=== PATIENT | male | born 1960 | race Caucasian/White ===

== ENCOUNTER 2018-02-13 21:16 | Inpatient (IN) | payer MEDICARE, OTHER ==
[~2018-02-13] VITALS: Ht 180.3 cm; Wt 88.5 kg
--- NOTE | 2018-02-13 21:24 | NUR ---
PT BIB RA. COMP OF "FOUND ON FLOOR BY CAREGIVER" PT AOX3. NO SOB NOTED. NO ACUTE DISTRESS AT THIS TIME. AWAITING MD CASTANO.
[2018-02-13] MEDS ORDERED: IV NS 0.9% 500 ML BAG IV ONE (22:00)
[2018-02-13 22:06] LABS: BASOPHILS % (AUTO) 0.3 % (0.0-2.0); CALCIUM, SERUM 8.5 mg/dL (8.5-10.1); CREATININE 1.1 mg/dL (0.6-1.3); EOSINOPHILS % (AUTO) 0.1 % (0.0-6.0); HEMATOCRIT 35 % (39-51); HEMOGLOBIN 11.7 g/dL (13.5-17.5); LYMPHOCYTES # (AUTO) 0.3 /CMM (0.8-4.8); LYMPHOCYTES % (AUTO) 5.2 % (20.0-44.0); MEAN CORPUSCULAR HGB CONC 33 g/dl (31.0-36.0); MEAN CORPUSCULAR VOLUME 88 fL (80-96); MONOCYTES # (AUTO) 0.5 /CMM (0.1-1.30); MONOCYTES % (AUTO) 7.8 % (2.0-12.0); NEUTROPHILS % (AUTO) 86.6 % (43.0-81.0); PLATELET COUNT (AUTO) 186 /CMM (150-450); POTASSIUM 3.8 mmol/L (3.5-5.1); RED BLOOD CELL COUNT(AUTO) 4.02 MIL/uL (4.5-6.0); WHITE BLOOD COUNT (AUTO) 5.8 K/uL (4.3-11.0)
--- NOTE | 2018-02-13 22:14 | NUR ---
PT TAKEN TO RADIO
[2018-02-13 22:20] LABS: BILIRUBIN,DIRECT 0.2 mg/dL (0.0-0.2); BILIRUBIN,TOTAL 0.5 mg/dL (0.2-1.0); TOTAL PROTEIN, SERUM 6.5 g/dL (6.4-8.2)
[2018-02-13 22:22] LABS: CREATINE KINASE, TOTAL 618 U/L (39-308)
[2018-02-13] MEDS ORDERED: MORPHINE SULFATE INJ 2 MG/ML DISP.SYRIN IV ONE (22:30)
[2018-02-13] MEDS ORDERED: MORPHINE SULFATE INJ 4 MG/ML DISP.SYRIN ONE (22:46)
[2018-02-13 23:16] LABS: APPEARANCE,URINE CLEAR (CLEAR); BILIRUBIN,URINE 1+ (NEGATIVE); BLOOD, URINE TRACE-INTA Ery/uL (NEGATIVE); COLOR,URINE YELLOW (YELLOW); KETONES,URINE 2+ (NEGATIVE); LEUKOCYTE ESTERASE ,URINE NEGATIVE (NEGATIVE); NITRITE, URINE NEGATIVE (NEGATIVE); PROTEIN,URINE TRACE mg/dl (NEGATIVE); UGLUCOSE NEGATIVE (NEGATIVE); UROBILINOGEN,URINE 0.2 EU/dL (0.2)
[2018-02-13] MEDS ORDERED: HYDROMORPHONE 1 MG/1 ML DISP.SYRIN ONE (23:24)
[2018-02-13] MEDS ORDERED: ASPIRIN 325 MG TABLET ONE (23:24)
[2018-02-13 23:25] LABS: BACTERIA,URINE None seen /HPF (None Seen); RBC,URINE 0-2 /HPF (0-2); SQUAMOUS EPITHELIAL CELL,UR Few /HPF (None Seen); WBC,URINE 0-2 /HPF (0-3)
[2018-02-13] MEDS ORDERED: IV NS 0.9% 1,000 ML BAG IV ONE (23:30)
[2018-02-13] MEDS ORDERED: HYDROMORPHONE 1 MG/1 ML DISP.SYRIN IV ONE (23:30)
[2018-02-13] MEDS ORDERED: ASPIRIN 325 MG TABLET PO ONE (23:30)
--- NOTE | 2018-02-13 23:50 | NUR ---
REPORT GIVEN TO SKYLAR KAPOOR.
--- NOTE | 2018-02-13 23:57 | NUR ---
REAL ESTATE INSTRUCTOR NOTES PATIENT WAS BROUGHT BY ER STAFF, SAFELY TRANSFERRED TO BED, RESPIRATIONS EVEN AND UNLABORED WITH EQUAL RISE AND FALL OF CHEST.ALERT AND ORIENTED X 2-3.
[2018-02-14] VITALS (7 sets, daily range): BP systolic 93–118; BP diastolic 49–67
[2018-02-14] MEDS ORDERED: ONDANSETRON HCL/PF 4 MG/2 ML VIAL IVP PRN
[2018-02-14] MEDS ORDERED: Z GUARD REMEDY 2 OZ OINT TP PRN
[2018-02-14] MEDS ORDERED: ACETAMINOPHEN 325 MG TABLET PO PRN
[2018-02-14] MEDS ORDERED: MORPHINE SULFATE INJ 2 MG/ML DISP.SYRIN IV PRN
[2018-02-14] MEDS ORDERED: HYDROCODONE/APAP 5/325MG 1 EACH TABLET PO PRN
[2018-02-14] MEDS ORDERED: MAGNESIUM HYDROXIDE 30 ML UDC PO PRN
[2018-02-14] MEDS ORDERED: HYDROCODONE/APAP 10/325MG 1 EA TABLET PO PRN
[2018-02-14] MEDS ORDERED: MAG HYDROX/AL HYDROX/SIMETH 30 ML UDC PO PRN
--- NOTE | 2018-02-14 00:02 | NUR ---
SUPERVISOR ROUGH END NOTES PATIENT WAS TAKEN DOWN FOR CT SCAN ORDERED STAT.
--- NOTE | 2018-02-14 00:05 | NUR ---
PROFESSOR OF FORESTRY NOTES RECEIVED CALL PATIENT WILL GO BACK TO ER AFTER CT AND RESULTS. PATIENT IS NOT ON THE FLOOR AT THIS TIME
[2018-02-14] MEDS ORDERED: HYDROMORPHONE 1 MG/1 ML DISP.SYRIN ONE (00:16)
[2018-02-14] MEDS ORDERED: LORAZEPAM INJ 2 MG/ML VIAL ONE (00:17)
[2018-02-14] MEDS ORDERED: HYDROMORPHONE INJ 0.5 MG/0.5 ML SYRINGE IV PRN (00:30)
[2018-02-14] MEDS ORDERED: LORAZEPAM INJ 2 MG/ML VIAL IV ONE (00:30)
--- NOTE | 2018-02-14 00:39 | NUR ---
Patient is resting comfortably in bed with eyes closed. Easily aroused. VSS
[2018-02-14] MEDS ORDERED: DEXAMETHASONE SOD PHOSPHATE 10 MG/ML VIAL IV STA (01:11)
--- NOTE | 2018-02-14 01:25 | NUR ---
SKYLAR KAPOOR UPDATED ON PT CONDITION.
--- NOTE | 2018-02-14 01:25 | NUR ---
OCCASIONAL BABYSITTER NOTES RECEIVED CALL FROM BETY IN ER WITH PATIENT UPDATE.
[2018-02-14] MEDS ORDERED: IV NS 0.9% 1,000 ML BAG IV ONE (01:30)
[2018-02-14] MEDS ORDERED: DEXAMETHASONE SOD PHOSPHATE 10 MG/ML VIAL ONE (01:35)
--- NOTE | 2018-02-14 01:50 | NUR ---
BINDERY LEADPERSON ADMITTING OPENING NOTES RECEIVED PATIENT FROM ER, AWAKE ALERT AND ORIENTED , RESPIRATIONS EVEN AND UNLABORED WITH EQUAL RISE AND FALL OF CHEST, DENIES ANY PAIN OR DISCOMFORT AT THIS TIME, IV SITE TO LEFT AC #18 G INTACT AND PATENT, NO REDNESS, NO INFILTRATION PRESENT, NS CURRENTLY RUNNING WIDE OPEN FROM ER, BODY ASSESSMENT DONE, PICTURES TAKEN, NO BELONGINGS WITH PATIENT, PERINEAL CARE PROVIDED PATIENT VOID X 1, ALL NEEDS ATTENDED AT THIS TIME, SAFETY PRECAUTIONS IN PLACE, LOW BED AND LOCKED, BED ALARM IN PLACE, CALL LIGHT KEPT WITHIN REACH,ALL NEEDS ATTENDED AT THIS TIME WILL FOLLOW ORDERS PER MD ORDERS.REMAINS COMFORTABLE AT THIS TIME, PATIENT FELL ASLEEP BUT IS EASILY AROUSABLE. Addendum: 02/14/18 at 0330 by SKYLAR VIRK RN ON REHAB SPECIALIST SR 64
[2018-02-14] MEDS: IV NS 0.9% 1,000 ML IV PRN ×2 (02:32→14:18)
--- NOTE | 2018-02-14 05:02 | NUR ---
FILM LOADER NOTES VAUGHN ALMONTE AWARE OF TROPONIN 0.065 TRENDING DOWN NO NEW ORDERS AT THIS TIME.
[2018-02-14] MEDS ORDERED: EVER10TA PO (05:06)
[2018-02-14] MEDS ORDERED: CLIN150C16 PO (05:06)
[2018-02-14] MEDS ORDERED: NITR0.4T48 SL (05:06)
[2018-02-14] MEDS ORDERED: NITROGLYCERIN 0.4 MG/TAB BOTTLE SL SCH (05:30)
[2018-02-14] MEDS ORDERED: MORPHINE SULFATE INJ 4 MG/ML DISP.SYRIN IV PRN (06:48)
--- NOTE | 2018-02-14 06:53 | NUR ---
TAPE STRINGER CLOSING NOTES PATIENT IN BED SLEEPING BUT EASILY AROUSABLE, RESPIRATIONS EVEN AND UNLABORED WITH EQUAL RISE AND FALL OF CHEST, ON 02 2 L VIA NC FOR COMFORT, NO SOB, NO RESPIRATORY DISTRESS PRESENT, ON LAB MANAGER SR 64, IV SITE TO LEFT AC #18 G INTACT AND PATENT, NO REDNESS, NO INFILTRATION PRESENT, IVF RUNNING ORDERED, PERINEAL CARE PROVIDED, DRESSINGS REMAIN CLEAN AND INTACT , SAFETY PRECAUTIONS IN PLACE, LOW BED AND LOCKED, BED ALARM IN PLACE, ALL NEEDS ATTENDED AT THIS TIME, CALL LIGHT KEPT WITHIN REACH, WILL CONTINUE TO MONITOR AND ENDORSE TO NEXT SHIFT, PATIENT REMAINS COMFORTABLE.
[2018-02-14 07:14] LABS: BASOPHILS % (AUTO) 0.3 % (0.0-2.0); HEMATOCRIT 35 % (39-51); HEMOGLOBIN 11.3 g/dL (13.5-17.5); LYMPHOCYTES # (AUTO) 0.2 /CMM (0.8-4.8); MEAN CORPUSCULAR HGB CONC 32 g/dl (31.0-36.0); MEAN CORPUSCULAR VOLUME 90 fL (80-96); MONOCYTES # (AUTO) 0.1 /CMM (0.1-1.30); MONOCYTES % (AUTO) 1.3 % (2.0-12.0); NEUTROPHILS # (AUTO) 3.6 /CMM (1.8-8.9); NEUTROPHILS % (AUTO) 93.4 % (43.0-81.0); PLATELET COUNT (AUTO) 163 /CMM (150-450); RED BLOOD CELL COUNT(AUTO) 3.89 MIL/uL (4.5-6.0); WHITE BLOOD COUNT (AUTO) 3.9 K/uL (4.3-11.0)
--- NOTE | 2018-02-14 07:24 | NUR ---
MUFFLE WORKER OPENING NOTES PT RECEIVED IN BED AT LOWEST AND LOCKED POSITION WITH SIDE RAILS UP X3, A/O X2, BREATHING EVEN AND UNLABORED ON RA, NO S/S OF PAIN OR DISTRESS CURRENTLY NOTED, IV IS PATENT AND INTACT WITH NS INFUSING, SAFETY PRECAUTIONS IN PLACE, CALL LIGHT WITH REACH, WILL MONITOR ACCORDINGLY
[2018-02-14 07:36] LABS: ALBUMIN 2.6 g/dL (3.4-5.0); BILIRUBIN,TOTAL 0.4 mg/dL (0.2-1.0); CALCIUM, SERUM 7.7 mg/dL (8.5-10.1); CREATININE 0.9 mg/dL (0.6-1.3); MAGNESIUM 2.1 mg/dL (1.8-2.4); PHOSPHORUS 2.2 mg/dL (2.5-4.9); POTASSIUM 3.9 mmol/L (3.5-5.1)
[2018-02-14] MEDS: DEXAMETHASONE SOD PHOSPHATE 4 MG/ML VIAL IV SCH ×3 (07:47→19:55)
[2018-02-14] MEDS: PANTOPRAZOLE 40 MG TABLET.DR PO SCH (07:47)
[2018-02-14 08:24] LABS: THYROID STIMULATING HORMONE 0.513 uIU/mL (0.358-3.74)
--- NOTE | 2018-02-14 12:30 | NUR ---
KENNETH SWANSON PT DPOA AT THIS TIME BROUGHT IN DPOA PAPERWORK [facility] DIRECTIVE, AND HOME MEDS WHICH WERE HANDED TO MED RECON NURSE LANCE FOR RECONCILIATION. LANCE MED RECON NURSE TOOK MEDS DOWN TO PHARMACY
[2018-02-14] MEDS ORDERED: BACL10TA PO (12:53)
[2018-02-14] MEDS ORDERED: OXYC5TAB3 PO (12:53)
[2018-02-14] MEDS ORDERED: CARV6.252 PO (12:53)
[2018-02-14] MEDS ORDERED: OXYC40TA50 PO (12:54)
[2018-02-14] MEDS ORDERED: BACLOFEN (10 MG) 10 MG TABLET PO PRN (18:00)
--- NOTE | 2018-02-14 18:17 | NUR ---
RN CLOSING NOTES PT IN BED AT LOWEST AND LOCKED POSITION WITH SIDE RAILS UP X3, A/O X2, BREATHING EVEN AND UNLABORED ON RA, NO S/S OF PAIN OR DISTRESS CURRENTLY NOTED, SAFETY PRECAUTIONS IN PLACE, CALL LIGHT WITH REACH, ALL NEEDS ATTENDED TO, WILL ENDORSE TO COMMISSIONING ENGINEER RN FOR CONTINUITY OF CARE
--- NOTE | 2018-02-14 19:31 | NUR ---
RN MS OPENING NOTES RECEIVED PATIENT IN BED AWAKE, ALERT AND ORIENTED X2, VERBALLY RESPONSIVE, ABLE TO MAKE NEEDS KNOWN. BREATHING EVEN AND UNLABORED. NO SOB NOTED. ON 2L OXYGEN VIA NC. IV ON LEFT AC#18 INTACT AND PATENT. SKIN DRY AND WARM TO TOUCH. ALL OTHER NEEDS ATTENDED TO. SAFETY MEASURES IN PLACE. CALL LIGHT WITHIN REACH. WILL CONTINUE TO MONITOR.
[2018-02-14] MEDS: oxyCODONE HCL SR 20MG TAB.SR.12H PO SCH (21:30)
[2018-02-14] MEDS ORDERED: IV D5/0.45 NACL 1,000 ML IV ONE (23:30)
--- NOTE | 2018-02-15 | NUR ---
RN MS NOTES RECEIVED NEW ORDER FOR LEVETIRACETAM 500MG/5ML IV. MEDICATION NOT IN OMNICELL. CALLED IN TO EVENT MARKETING MANAGER, ANA. PER ANA, HE WILL CHECK TO SEE IF ITS IN THE STOCK CABINET. AWAITING UPDATE. WILL CONTINUE TO F/U.
[2018-02-15] MEDS ORDERED: LEVETIRACETAM (500MG) 500 MG/5 ML VIAL IV ONE (00:15)
--- NOTE | 2018-02-15 00:18 | NUR ---
RN MS NOTES RECEIVED LEVETIRACETAM 500MG/5ML VIAL FROM COST AND RISK ANALYSIS MANAGER. WILL ADMINISTER ACCORDINGLY.
[2018-02-15] MEDS: LEVETIRACETAM (500MG) 500 MG in IV NS 0.9% 100 ML IV SCH ×3 (00:24→23:10)
[2018-02-15] MEDS: DEXAMETHASONE SOD PHOSPHATE 4 MG/ML VIAL IV SCH ×4 (03:18→19:46)
--- NOTE | 2018-02-15 06:28 | NUR ---
RN MS CLOSING NOTES PATIENT IN BED ASLEEP. EASILY AROUSABLE. NO ACUTE CHANGES THROUGHOUT SHIFT. NO DISTRESS. NO SOB. ON 2L OXYGEN VIA NC. NO COMPLAINTS OF PAIN OR DISCOMFORT. NO FACIAL GRIMACING. IV ON RIGHT FOREARM #22 INTACT AND PATENT - RUNNING D51/2 NS @50ML/HR. SKIN DRY AND WARM TO TOUCH. AFEBRILE. ALL OTHER NEEDS ATTENDED TO. KEPT CLEAN DRY AND COMFORTABLE. SAFETY MEASURES IN PLACE. CALL LIGHT WITHIN REACH. WILL ENDORSE TO ONCOMING NURSE FOR CONTINUITY OF CARE.
--- NOTE | 2018-02-15 07:17 | NUR ---
MS RN OPENING NOTE RECEIVED PATIENT IN BED. ALERT ORIENTED X2-3. ON ROOM AIR, TOLERATING WELL. IN NO APPARENT DISTRESS OR DISCOMFORT AT THIS TIME. RESPIRATIONS EVEN AND UNLABORED. DENIES PAIN AND SOB. PATIENT IS ABLE TO COMMUNICATE NEEDS. IS INCONTINENT WITH USE OF DIAPER. RIGHT FOREARM 22G IVC WITH FLUIDS RUNNING AT 50ML/HR. PATIENTS EXTREMITIES ELEVATED AT THIS TIME. PER ASSOCIATE QUALITY ENGINEER RN PATIENT HAS BEEN HAVING DECREASED BP IN 90S/50'S. PATIENT KEPT CLEAN AND COMFORTABLE. ALL NEEDS ATTENDED, SAFETY MEASURE IN PLACE, BED IN LOW LOCKED POSITION, SIDE RAILS UP X2, CALL LIGHT WITHIN EASY REACH. WILL CONTINUE TO MONITOR.
[2018-02-15 07:49] LABS: CREATINE KINASE, TOTAL 630 U/L (39-308)
[2018-02-15 08:00] VITALS: BP 86/55
[2018-02-15 08:00] LABS: CALCIUM, SERUM 7.4 mg/dL (8.5-10.1); CARBON DIOXIDE 21 mmol/L (21-32); CHLORIDE 112 mmol/L (98-107); CREATININE 0.9 mg/dL (0.6-1.3); GLUCOSE 183 mg/dL (74-106); MAGNESIUM 2.1 mg/dL (1.8-2.4); PHOSPHORUS 2.6 mg/dL (2.5-4.9); POTASSIUM 3.7 mmol/L (3.5-5.1); SODIUM SERUM 144 mmol/L (136-145); UREA NITROGEN, BLOOD 22 mg/dL (7-18)
[2018-02-15 08:09] VITALS: BP 86/55
[2018-02-15] MEDS ORDERED: IV NS 0.9% 500 ML IV ONE (08:30)
--- NOTE | 2018-02-15 08:38 | NUR ---
PATIENT'S BP 86/55. STILL REMAINS IN THE LOW SIDE. REPORTED TO DR. MATTHEWS. ORDER RECEIVED TO ADMINISTER 500CC NS IV BOLUS X1 NOW. HOLD BP MEDS IF SBP<100. DISCONTINUE CURRENT IV FLUIDS D57/2NS. NOTED AND CARRIED OUT. CONTINUE TO MONITOR AT THIS TIME.
[2018-02-15] MEDS: PANTOPRAZOLE 40 MG TABLET.DR PO SCH (08:42)
[2018-02-15] MEDS: oxyCODONE HCL SR 20MG TAB.SR.12H PO SCH ×2 (08:44→21:13)
[2018-02-15] MEDS: CARVEDILOL 6.25 MG TABLET PO SCH ×2 (08:44→17:00)
--- NOTE | 2018-02-15 10:30 | NUR ---
AFTER ADMINISTERING ORDERED BOLUS NS, PATIENT'S BP WAS RECHECKED WITH READING OF 100/67 AND HR OF 82. WILL CONTINUE TO MONITOR AT THIS TIME.
--- NOTE | 2018-02-15 10:48 | NUR ---
WOUND CARE CONSULT: PT PRESENTS WITH SACRAL BLANCHABLE REDNESS, PRESENT ON ADMISSION. SACRUM IS VERY BONY. RECOMMENDATIONS MADE FOR SKIN PROTECTION AND CARE. DISCUSSED WITH NURSING STAFF. PT IS CONTINENT AT THIS TIME AND ABLE TO ASSIST WITH TURNING AND REPOSITIONING IN BED. WILL SEE PRN. SOLER IN AGREEMENT WITH PLAN OF CARE. Addendum: 02/15/18 at 1050 by BRAD FISHER WNDNU Amended: Links added.
[2018-02-15 16:06] VITALS: BP 105/66
--- NOTE | 2018-02-15 17:00 | NUR ---
PATIENT'S BP IS 105/66 AND HR 79. PATIENT REFUSED TO TAKE HIS COREG AT THIS TIME STATING THAT HIS BP IS WNL AND IT WOULD DROP AGAIN IF HE TAKES THE MEDICINE. PATIENT REPORTED THAT HIS BP IS ALWAYS VERY LOW UPON AWAKENING. WILL NOTIFY MD AND CONTINUE TO MONITOR AT THIS TIME.
--- NOTE | 2018-02-15 18:44 | NUR ---
MS RN CLOSING NOTE PATIENT IN BED. ALERT ORIENTED X4. ON ROOM AIR, TOLERATING WELL. IN NO APPARENT DISTRESS OR DISCOMFORT AT THIS TIME. RESPIRATIONS EVEN AND UNLABORED. DENIES PAIN AND SOB. PATIENT IS ABLE TO COMMUNICATE NEEDS. PATIENT USES URINAL FOR ELIMINATION. RIGHT FOREARM 22G IVC SL, PATENT AND INTACT. PATIENT KEPT CLEAN AND COMFORTABLE. ALL NEEDS ATTENDED, ORDERS RENDERED. SAFETY MEASURE IN PLACE, BED IN LOW LOCKED POSITION, SIDE RAILS UP X2, CALL LIGHT WITHIN EASY REACH. WILL ENDORSE TO PM NURSE FOR KOJO.
--- NOTE | 2018-02-15 19:32 | NUR ---
RN MS OPENING NOTES RECEIVED PATIENT IN BED AWAKE, ALERT AND ORIENTED X3, VERBALLY RESPONSIVE, ABLE TO MAKE NEEDS KNOWN. BREATHING EVEN AND UNLABORED. NO SOB NOTED. ON ROOM AIR. DENIES PAIN OR DISCOMFORT AT THE MOMENT. IV ON RIGHT FOREARM G#22 INTACT AND PATENT. SKIN DRY AND WARM TO TOUCH. AFEBRILE. ALL OTHER NEEDS ATTENDED TO. SAFETY MEASURES IN PLACE. CALL LIGHT WITHIN REACH. WILL CONTINUE TO MONITOR.
[2018-02-15 20:00] VITALS: BP 107/56
[2018-02-16] MEDS: DEXAMETHASONE SOD PHOSPHATE 4 MG/ML VIAL IV SCH ×2 (02:12→09:04)
--- NOTE | 2018-02-16 06:37 | NUR ---
RN MS CLOSING NOTES PATIENT IN BED AWAKE. NO ACUTE CHANGES THROUGHOUT SHIFT. KEPT NPO PAST MIDNIGHT FOR MRI THIS MORNING. NO DISTRESS. NO SOB. ON 2L OXYGEN VIA NC, BUT OCCASIONALLY TAKES IT OFF - TOLERATES ROOM AIR. NO COMPLAINTS OF PAIN OR DISCOMFORT. NO FACIAL GRIMACING. IV ON RIGHT FOREARM #22 INTACT AND PATENT. SKIN DRY AND WARM TO TOUCH. AFEBRILE. ALL OTHER NEEDS ATTENDED TO. KEPT CLEAN DRY AND COMFORTABLE. SAFETY MEASURES IN PLACE. CALL LIGHT WITHIN REACH. WILL ENDORSE TO ONCOMING NURSE FOR CONTINUITY OF CARE.
--- NOTE | 2018-02-16 06:42 | NUR ---
RN MS NOTES PER PATIENT, HE WOULD LIKE TO TALK TO MD OR MELTER SUPERVISOR OPEN HEARTH FURNACE PRIOR TO HAVING AN MRI. HE WOULD LIKE TO TALK TO THEM REGARDING "BILLING." CHARGE NURSE MADE AWARE. WILL ENDORSE TO ONCOMING NURSE TO HAVE MD OR CM SEE PATIENT.
[2018-02-16 07:11] LABS: BASOPHILS % (AUTO) 0.1 % (0.0-2.0); HEMATOCRIT 32 % (39-51); HEMOGLOBIN 10.5 g/dL (13.5-17.5); LYMPHOCYTES # (AUTO) 0.2 /CMM (0.8-4.8); LYMPHOCYTES % (AUTO) 3.8 % (20.0-44.0); MEAN CORPUSCULAR HGB CONC 33 g/dl (31.0-36.0); MEAN CORPUSCULAR VOLUME 87 fL (80-96); MONOCYTES # (AUTO) 0.3 /CMM (0.1-1.30); MONOCYTES % (AUTO) 4.2 % (2.0-12.0); NEUTROPHILS % (AUTO) 91.9 % (43.0-81.0); PLATELET COUNT (AUTO) 160 /CMM (150-450); RED BLOOD CELL COUNT(AUTO) 3.65 MIL/uL (4.5-6.0); WHITE BLOOD COUNT (AUTO) 6.5 K/uL (4.3-11.0)
[2018-02-16 07:25] LABS: CREATININE 0.9 mg/dL (0.6-1.3); MAGNESIUM 2.2 mg/dL (1.8-2.4); PHOSPHORUS 1.7 mg/dL (2.5-4.9); POTASSIUM 4.7 mmol/L (3.5-5.1)
[2018-02-16] MEDS: PANTOPRAZOLE 40 MG TABLET.DR PO SCH (07:30)
[2018-02-16 08:00] VITALS: BP 129/71
[2018-02-16 09:11] VITALS: BP 129/71
[2018-02-16] MEDS: CARVEDILOL 6.25 MG TABLET PO SCH (09:11)
[2018-02-16] MEDS: oxyCODONE HCL SR 20MG TAB.SR.12H PO SCH (09:18)
[2018-02-16] MEDS ORDERED: K PHOS NEUTRAL 250 MG TABLET PO ONE ×2 (12:00→13:30)
[2018-02-16] MEDS ORDERED: DEXA4TAB PO (12:06)
[2018-02-16] MEDS ORDERED: LEVE250T2 PO (12:06)
--- NOTE | 2018-02-16 14:57 | NUR ---
Patient discharged on 02/16/18 from Room 323-2 at 1345. Discharge paperwork signed and sent with patient. Orders signed by MD Gutierrez. Skin in tact. Bilateral upper extremities bruises noted. Patient discharged with friend via wheelchair from unit. No s/s of distress noted. Patient AOX4 with no c/o of pain noted. Educated patient to discharge MD instructions and medication list with verbal understanding.
[2018-02-16] MEDS ORDERED: LEVETIRACETAM (250 MG) 250 MG TABLET PO SCH (21:00)
== END 2018-02-16 13:45 | disposition home or self-care (01) | DRG 542 ==
LOC: ER 21:23 → TELE 23:36 → MED 02-14 11:11
PROVIDERS: ADMIT Registered Nurse; ATTEND Internal Medicine
DX: M48.54XA Collapsed vertebra, not elsewhere classified, thoracic region, initial encounter for fracture (principal); G93.6 Cerebral edema; G93.41 Metabolic encephalopathy; I21.A1 Myocardial infarction type 2; S22.42XA Multiple fractures of ribs, left side, initial encounter for closed fracture; C79.31 Secondary malignant neoplasm of brain; C34.90 Malignant neoplasm of unspecified part of unspecified bronchus or lung; C79.51 Secondary malignant neoplasm of bone; E44.1 Mild protein-calorie malnutrition; E86.0 Dehydration; R53.1 Weakness; E88.09 Other disorders of plasma-protein metabolism, not elsewhere classified; Z68.27 Body mass index [BMI] 27.0-27.9, adult; Z66 Do not resuscitate; Z90.2 Acquired absence of lung [part of]; I10 Essential (primary) hypertension; Z91.81 History of falling; Z90.5 Acquired absence of kidney; W18.30XA Fall on same level, unspecified, initial encounter; Y93.9 Activity, unspecified; Y92.009 Unspecified place in unspecified non-institutional (private) residence as the place of occurrence of the external cause
CPT/HCPCS: 36415; 70450-TC; 71045-TC; 72131-TC; 73502; 80048-TC; 80053-TC; 80061-TC; 80076-TC; 81000-TC; 82550-TC; 82553-TC; 83735-TC; 84100-TC; 84443-TC; 84484-TC; 85025-TC; 85730-TC; 87081-TC; A4606; G0378; J1100; J1170; J1953; J2060; J2270; J3490; J7030; J7040; J7050; Z7610

== ENCOUNTER 2018-03-15 15:23 | Inpatient (IN) | payer MEDICARE ==
[~2018-03-15] VITALS: Ht 167.6 cm; Wt 67.6 kg
[~2018-03-15 15:23] MED LIST: BACL10TA PO; CARV6.252 PO; DEXA4TAB PO; EVER10TA PO; LEVE250T2 PO; NITR0.4T48 SL; OXYC40TA50 PO; OXYC5TAB3 PO
--- NOTE | 2018-03-15 15:30 | NUR ---
JEAN 102, ALTERED, BS 51, D10 250ML GIVEN BS 233, CG SAW HIM ON THE FLOOR DON'T KNOW FOR HOW MANY DAYS NOW. TO ER BED 8, CHANGED TO GOWN, HOOKED TO MONITOR, AT BEDSIDE
[2018-03-15 15:56] LABS: CALCIUM, SERUM 7.9 mg/dL (8.5-10.1); CARBON DIOXIDE 18 mmol/L (21-32); CHLORIDE 103 mmol/L (98-107); CREATININE 0.8 mg/dL (0.6-1.3); GLUCOSE 186 mg/dL (74-106); POTASSIUM 3.9 mmol/L (3.5-5.1); SODIUM SERUM 134 mmol/L (136-145); UREA NITROGEN, BLOOD 51 mg/dL (7-18)
[2018-03-15 16:00] LABS: HEMATOCRIT 42 % (39-51); HEMOGLOBIN 13.6 g/dL (13.5-17.5); LYMPHOCYTES # (AUTO) 0.1 /CMM (0.8-4.8); MEAN CORPUSCULAR HGB CONC 32 g/dl (31.0-36.0); MEAN CORPUSCULAR VOLUME 89 fL (80-96); MONOCYTES # (AUTO) 0.3 /CMM (0.1-1.30); MONOCYTES % (AUTO) 6.9 % (2.0-12.0); NEUTROPHILS # (AUTO) 4.4 /CMM (1.8-8.9); NEUTROPHILS % (AUTO) 91.1 % (43.0-81.0); PLATELET COUNT (AUTO) 74 /CMM (150-450); RED BLOOD CELL COUNT(AUTO) 4.76 MIL/uL (4.5-6.0); WHITE BLOOD COUNT (AUTO) 4.9 K/uL (4.3-11.0)
[2018-03-15] MEDS ORDERED: IV NS 0.9% 1,000 ML BAG IV ONE (16:00)
[2018-03-15 16:02] LABS: ACETAMINOPHEN 4 ug/ml (10-30); ALANINE AMINOTRANSFERASE 64 U/L (12-78); ALBUMIN 2.8 g/dL (3.4-5.0); ALCOHOL, BLOOD < 3 mg/dL (0-0); ALKALINE PHOSPHATASE 73 U/L (46-116); ASPARTATE AMINOTRANSFERASE 53 U/L (15-37); BILIRUBIN,DIRECT 0.3 mg/dL (0.0-0.2); BILIRUBIN,TOTAL 0.7 mg/dL (0.2-1.0); TOTAL PROTEIN, SERUM 5.5 g/dL (6.4-8.2)
[2018-03-15 16:38] LABS: BAND % (MANUAL) 3 % (0.0-5.0); LYMPHOCYTES % (MANUAL) 3 % (16-48); MONOCYTES % (MANUAL) 2 % (0-11.0); NEUTROPHILS % (MANUAL) 92 (42-76)
[2018-03-15 16:43] LABS: APPEARANCE,URINE Clear (CLEAR); BILIRUBIN,URINE Negative (NEGATIVE); BLOOD, URINE Negative Ery/uL (NEGATIVE); COLOR,URINE Yellow (YELLOW); KETONES,URINE 15 (NEGATIVE); LEUKOCYTE ESTERASE ,URINE Negative (NEGATIVE); NITRITE, URINE Negative (NEGATIVE); PH,URINE 5.5 (5.0-8.0); PROTEIN,URINE Negative (NEGATIVE); UGLUCOSE Negative (NEGATIVE); UROBILINOGEN,URINE 0.2 EU/dL (0.2)
[2018-03-15 16:47] LABS: SERUM AMMONIA < 10 umol/L (11-32)
[2018-03-15 17:01] LABS: BACTERIA,URINE Few /HPF (None Seen); RBC,URINE 0-2 /HPF (0-2); SQUAMOUS EPITHELIAL CELL,UR Few /HPF (None Seen); WBC,URINE 0-2 /HPF (0-3)
--- NOTE | 2018-03-15 17:26 | NUR ---
REPORT GIVEN TO BERTIN KAPOOR FOR ADMISSION
--- NOTE | 2018-03-15 18:15 | NUR ---
MS RN NOTES ADMITTED 57 YEAR OLD MALE TO UNIT. ARRIVED VIA GURNEY, REPORT RECEIVED FROM TATE KAPOOR. PATIENT AWAKE, ALERT TO SELF AND PLACE BUT NOT TO TIME, DATE, NOR SITUATION. PATIENT REORIENTED NEEDED. PATIENT BREATHING EVEN AND UNLABORED. NO ACUTE DISTRESS. DENIES ANY PAIN OR DISCOMFORT. PATIENT CALM AND RELAXED. [id number], TIMOTHY, AT BEDSIDE (TEL: [phone]). PATIENT ADMITTED UNDER HEATHER ARMSTRONG NP. AWAITING ADMITTING ORDERS. PATIENT AND TIMOTHY ([id number]) ORIENTED TO UNIT, STAFF, ROOM, MEAL TIMES, MENU SYSTEM, PLAN OF CARE. WILL ENDORSE TO INCOMING SHIFT FOR KOJO. BED LOCKED AND IN LOW POSITION. BILATERAL UPPER SIDE RAILS UP AND LOCKED. CALL LIGHT WITHIN EASY REACH
[2018-03-15] MEDS ORDERED: MAGNESIUM HYDROXIDE 30 ML UDC PO PRN (19:00)
[2018-03-15] MEDS ORDERED: ONDANSETRON HCL/PF 4 MG/2 ML VIAL IVP PRN (19:00)
[2018-03-15] MEDS ORDERED: ACETAMINOPHEN 325 MG TABLET PO PRN (19:00)
[2018-03-15] MEDS ORDERED: MAG HYDROX/AL HYDROX/SIMETH 30 ML UDC PO PRN (19:00)
[2018-03-15] MEDS ORDERED: HYDROCODONE/APAP 10/325MG 1 EA TABLET PO PRN (19:00)
[2018-03-15] MEDS ORDERED: HYDROCODONE/APAP 5/325MG 1 EACH TABLET PO PRN (19:00)
--- NOTE | 2018-03-15 19:30 | NUR ---
PIER HAND HELPER NOTES Received this newly admitted patient A/O X2, awake on bed with patent peripheral IV line LEF G#18 with Ns infusing well @ 75ml/hr as ordered. With Adelina, primary caregiver at bedside. Reviewed admission orders, patient on tele - SR with BBB. Initial skin assessment done, photos taken and documented. All needs attended. Kept clean, dry and comfortable. Call light at bedside. Will continue to monitor accordingly.
--- NOTE | 2018-03-15 19:42 | NUR ---
MS RN NOTES ASKED PATIENT REGARDING VACCINATION STATUS BUT PATIENT VERBALIZES HE DOESNT KNOW. OFFERED TO HAVE PATIENT VACCINATED BUT PATIENT REFUSES AND STATES HE DOES NOT WANT ANY VACCINATIONS OR MEDICAL INTERVENTION. SISTER IN LAW, TIMOTHY AT BEDSIDE, ALSO UNSURE OF PATIENT VACCINATION STATUS. WILL CONTINUE TO MONITOR
--- NOTE | 2018-03-15 19:44 | NUR ---
MS RN NOTES TIMOTHY, [id number] AT BEDSIDE, STATING THAT SHE IS NOT THE PRIMARY DECISION MAKER AND THAT THE DECISION MAKER WILL BE COMING IN THE UNIT AROUND 8PM. STATES THAT THEY MIGHT WANT TO CONSIDER CHANGING THE CODE STATUS OF THE PATIENT TO DNR/DNI BUT SHE WANTS TO WAIT FOR THE PRIMARY DECISION MAKER TO ARRIVE IN THE UNIT. HEATHER ARMSTRONG NP. PRESENT AT UNIT AND MADE AWARE. WILL CONTINUE TO MONITOR
[2018-03-15 20:00] VITALS: BP 114/48
[2018-03-15] MEDS ORDERED: BACLOFEN (10 MG) 10 MG TABLET PO PRN (20:00)
[2018-03-15] MEDS ORDERED: HOME MED MISCELLANEOUS XX SCH (20:00)
[2018-03-15] MEDS ORDERED: TEMAZEPAM 7.5 MG CAPSULE PO PRN (20:00)
[2018-03-15] MEDS: LEVETIRACETAM (250 MG) 250 MG TABLET PO SCH (21:08)
[2018-03-15] MEDS ORDERED: DEXAMETHASONE 1 MG TABLET ONE (21:10)
[2018-03-15] MEDS: DEXAMETHASONE 4 MG TABLET PO SCH (21:11)
--- NOTE | 2018-03-15 22:00 | NUR ---
CHIEF ENVIRONMENTAL COMMITMENT OFFICER NOTES Received visitor, EMERY Luna ([phone]). Answered all inquiries with satisfaction. DPOA can not give the decision for now. Explained that patient will be full code while waiting for the decision. Will endorsed to the next nurse about patient's primary contact lens blocker.
[2018-03-15] MEDS: IV NS 0.9% 1,000 ML IV PRN (22:30)
[2018-03-16 00:40] VITALS: BP 92/54
[2018-03-16 04:00] VITALS: BP 99/65
[2018-03-16 06:32] LABS: BASOPHILS % (AUTO) 0.1 % (0.0-2.0); HEMATOCRIT 34 % (39-51); HEMOGLOBIN 11.4 g/dL (13.5-17.5); LYMPHOCYTES # (AUTO) 0.1 /CMM (0.8-4.8); LYMPHOCYTES % (AUTO) 2.3 % (20.0-44.0); MEAN CORPUSCULAR HGB CONC 33 g/dl (31.0-36.0); MEAN CORPUSCULAR VOLUME 88 fL (80-96); MONOCYTES # (AUTO) 0.1 /CMM (0.1-1.30); MONOCYTES % (AUTO) 1.7 % (2.0-12.0); NEUTROPHILS # (AUTO) 3.2 /CMM (1.8-8.9); NEUTROPHILS % (AUTO) 95.9 % (43.0-81.0); PLATELET COUNT (AUTO) 61 /CMM (150-450); RED BLOOD CELL COUNT(AUTO) 3.88 MIL/uL (4.5-6.0); WHITE BLOOD COUNT (AUTO) 3.4 K/uL (4.3-11.0)
[2018-03-16 06:37] LABS: CALCIUM, SERUM 7.3 mg/dL (8.5-10.1); CREATININE 0.7 mg/dL (0.6-1.3); MAGNESIUM 2.1 mg/dL (1.8-2.4); PHOSPHORUS 3.5 mg/dL (2.5-4.9); POTASSIUM 3.4 mmol/L (3.5-5.1)
--- NOTE | 2018-03-16 06:38 | NUR ---
SALES DEVELOPMENT MANAGER CLOSING NOTES Patient asleep on low Merritt's position on bed with patent peripheral IV access LEF G#18 with NS infusing well @ 75 ml/hr as ordered. Afebrile the whole shift. Noted getting off the bed but manageable with reorientation. On tele monitor - SR with BBB. On DVT pump BLE as ordered. All needs attended and met. Remained A/O X2, with circumstantiality noted. Kept clean, dry and comfortable. Due meds given as ordered. Endorsed to the next shift.
[2018-03-16 07:12] LABS: BAND % (MANUAL) 3 % (0.0-5.0); LYMPHOCYTES % (MANUAL) 4 % (16-48); MONOCYTES % (MANUAL) 2 % (0-11.0); NEUTROPHILS % (MANUAL) 91 (42-76)
--- NOTE | 2018-03-16 07:19 | NUR ---
HYDROMETEOROLOGIST OPENING NOTE RECEIVED PATIENT IN BED. ALERT ORIENTED X2, ON ROOM AIR, TOLERATING WELL. IN NO APPARENT DISTRESS OR DISCOMFORT AT THIS TIME. RESPIRATIONS EVEN AND UNLABORED. DENIES PAIN AND SOB. PATIENT ON TELE MONITORING WITH SR WITH BBB. PATIENT IS ABLE TO COMMUNICATE NEEDS. LEFT EJ VEIN 18G IVC WITH FLUIDS RUNNING AT 75ML/HR. PATIENT KEPT CLEAN AND COMFORTABLE. ALL NEEDS ATTENDED, SAFETY MEASURES IN PLACE, BED IN LOW LOCKED POSITION, SIDE RAILS UP X2, CALL LIGHT WITHIN EASY REACH WILL CONTINUE TO MONITOR.
[2018-03-16 08:00] VITALS: BP 93/55
--- NOTE | 2018-03-16 08:28 | NUR ---
CALLED PHARMACY TO OBTAIN DECADRON. SPOKE TO STEPHY, AWAITING MEDICATION DELIVERY.
[2018-03-16] MEDS ORDERED: CARVEDILOL 6.25 MG TABLET PO SCH (09:00)
--- NOTE | 2018-03-16 09:00 | NUR ---
PATIENT WITH BP OF 93/55. HELD SCHEDULED COREG, ELEVATED PATIENT'S EXTREMITIES, PATIENT IS RECEIVING IV FLUIDS AT 75 ML/HR. WILL CONTINUE TO MONITOR BP AT THIS TIME.
[2018-03-16] MEDS: LEVETIRACETAM (250 MG) 250 MG TABLET PO SCH ×2 (09:08→21:28)
--- NOTE | 2018-03-16 09:40 | NUR ---
PATIENT' EXTERNAL JUGULAR IV SITE IS INFILTRATED. PER DR. BAUGH REMOVE THE IV LINE AT THIS TIME, OK FOR PATIENT TO BE WITHOUT IV SITE PER MD. WILL ATTEMPT TO REINSERT IN A DIFFERENT SITE IF NEEDED.
--- NOTE | 2018-03-16 10:00 | NUR ---
PATIENT'S BP IS 95/50, NO SIGNIFICANT IMPROVEMENT. PATIENT IS STABLE, IN NO APPARENT DISTRESS OR DISCOMFORT. REPORTED TO DR. BAUGH, NO NEW ORDERS RECEIVED AT THIS TIME. WILL CONTINUE TO MONITOR.
--- NOTE | 2018-03-16 10:30 | NUR ---
NEW IV SITE ESTABLISHED IN RIGHT HAND 24G, PER EMELIA BOLTON. PATENT AND INTACT. RESUMED FLUIDS AT THIS TIME.
--- NOTE | 2018-03-16 10:58 | NUR ---
WOUND CARE CONSULT: PT PRESENTS WITH STAGE 3 ULCER TO SACRUM, PRESENT ON ADMISSION WELL MULTIPLE DRY ABRASIONS AND BRUISES. RECOMMENDATIONS MADE FOR WOUND CARE AND SKIN PROTECTION. DISCUSSED WITH NURSING STAFF. IN AGREEMENT WITH PLAN OF CARE. Addendum: 03/16/18 at 1059 by BRAD FISHER WNDNU Amended: Links added.
[2018-03-16] MEDS ORDERED: POTASSIUM CHLORIDE 20 MEQ TAB.PRT.SR PO SCH (11:00)
[2018-03-16] MEDS: Z GUARD REMEDY 2 OZ OINT TP SCH ×2 (11:30→12:53)
[2018-03-16] MEDS ORDERED: Z GUARD REMEDY 2 OZ OINT TP PRN (11:30)
[2018-03-16] MEDS ORDERED: HYDROGEL DRESSING 90 GM TUBE TP PRN (11:30)
[2018-03-16] MEDS: HYDROGEL DRESSING 90 GM TUBE TP SCH ×2 (11:30→12:51)
[2018-03-16] MEDS: DEXAMETHASONE 4 MG TABLET PO SCH ×2 (11:45→16:28)
[2018-03-16 16:00] VITALS: BP 98/54
--- NOTE | 2018-03-16 17:29 | NUR ---
Patient is alert, lives locally alone. Has a caregiver Iliana comes daily and provides assistance with adl's. Prior to admission, patient was ambulating with a walker. Has adequate DME: walker, wheelchair, raised toilet seat, shower chair and grab bars. He is currently on service with homehealth, caregiver does not remember name of the agency. Caregiver Iliana - [phone] will provide ride when discharge. Addendum: 03/16/18 at 1729 by SCOT KELLY RN Amended: Links added.
--- NOTE | 2018-03-16 18:09 | NUR ---
MS RN CLOSING NOTE PATIENT IN BED. ALERT ORIENTED X 3, WITH OCCASIONAL CONFUSION. ON ROOM AIR, TOLERATING WELL. IN NO APPARENT DISTRESS OR DISCOMFORT AT THIS TIME. RESPIRATIONS EVEN AND UNLABORED. DENIES PAIN AND SOB. PATIENT IS ABLE TO COMMUNICATE NEEDS. RIGHT HAND 24G IVC WITH FLUIDS RUNNING AT 75ML/HR. BILATERAL LOWER EXTREMITY PITTING EDEMA PRESENT. PATIENT KEPT CLEAN AND COMFORTABLE, DRESSINGS CHANGED. ALL NEEDS ATTENDED, ORDERS RENDERED. SAFETY MEASURES IN PLACE, BED IN LOW LOCKED POSITION, SIDE RAILS UP X2, CALL LIGHT WITHIN EASY REACH. WILL ENDORSE TO PM NURSE FOR KOJO.
--- NOTE | 2018-03-16 19:15 | NUR ---
MS RN NOTE PATIENT IN BED. ALERT ORIENTED X 3. ON ROOM AIR IN NO APPARENT DISTRESS OR DISCOMFORT AT THIS TIME. RESPIRATIONS EVEN AND UNLABORED. DENIES PAIN AND SOB/. PATIENT IS ABLE TO COMMUNICATE NEEDS RIGHT HAND 24G IVC WITH FLUIDS RUNNING AT 75ML/HR. SAFETY MEASURES IN PLACE, BED IN LOW LOCKED POSITION, SIDE RAILS UP X3, CALL LIGHT WITHIN HAND. RN WILL CONTINUE TO MONITOR.
[2018-03-16 20:00] VITALS: BP 105/77
[2018-03-17] MEDS: IV NS 0.9% 1,000 ML IV PRN (05:36)
[2018-03-17 06:57] LABS: CALCIUM, SERUM 7.3 mg/dL (8.5-10.1); CREATININE 0.6 mg/dL (0.6-1.3); POTASSIUM 3.4 mmol/L (3.5-5.1)
--- NOTE | 2018-03-17 07:15 | NUR ---
MS RN OPENING NOTE PATIENT IN BED. ALERT ORIENTED X 3, WITH OCCASIONAL CONFUSION. ON ROOM AIR, TOLERATING WELL. IN NO APPARENT DISTRESS OR DISCOMFORT AT THIS TIME. RESPIRATIONS EVEN AND UNLABORED. DENIES PAIN AND SOB. PATIENT IS ABLE TO COMMUNICATE NEEDS. RIGHT HAND 24G IVC WITH FLUIDS RUNNING AT 75ML/HR. BILATERAL LOWER EXTREMITY PITTING EDEMA PRESENT. PATIENT KEPT CLEAN AND COMFORTABLE, DRESSINGS CLEAN AND INTACT. ALL NEEDS ATTENDED, ORDERS RENDERED. SAFETY MEASURES IN PLACE, BED IN LOW LOCKED POSITION, SIDE RAILS UP X2, CALL LIGHT WITHIN EASY REACH. WILL CONTINUE TO MONITOR.
[2018-03-17 08:00] VITALS: BP 94/49
[2018-03-17] MEDS: DEXAMETHASONE 4 MG TABLET PO SCH (09:05)
[2018-03-17] MEDS: LEVETIRACETAM (250 MG) 250 MG TABLET PO SCH (09:05)
[2018-03-17] MEDS: HYDROGEL DRESSING 90 GM TUBE TP SCH (09:06)
[2018-03-17] MEDS: Z GUARD REMEDY 2 OZ OINT TP SCH (09:07)
[2018-03-17] MEDS ORDERED: POTASSIUM CHLORIDE 20 MEQ TAB.PRT.SR PO SCH (10:30)
--- NOTE | 2018-03-17 14:20 | NUR ---
MS BUNDLE TIER AND LABELER NOTE RECEIVED ORDER FOR DISCHARGE FROM DR. BAUGH. PATIENT IS BEING DISCHARGED HOME WITH PCP AND ONCOLOGY FOLLOW UP, AND HOME HEALTH CARE FOLLOW UP. PER PATIENT AND CAREGIVER, THEY HAVE THEIR PREFERRED HOME HEALTH CARE THAT IS GOING TO VISIT THIS AFTERNOON. PATIENT IS STABLE. VITAL SIGNS STABLE. ALERT ORIENTED X4. ON ROOM AIR, TOLERATING WELL. IN NO APPARENT DISTRESS OR DISCOMFORT AT THIS TIME. RESPIRATIONS EVEN AND UNLABORED. DENIES PAIN AND SOB. DISCHARGE PAPERWORK PREPARED VIA [employer]. PROVIDED EDUCATION TO PATIENT AND CAREGIVER, CM, REGARDING DISCHARGE INSTRUCTIONS AND FOLLOW UP CARE, BOTH VERBALIZED UNDERSTANDING. PATIENT REFUSED FULL SKIN ASSESSMENT AND PHOTOS, STATING, HE DOESN'T WANT TO BE BOTHERED. HOWEVER, AGREED TO CHANGE DRESSINGS PRIOR TO DISCHARGE. PATIENT REFUSED FLU VACCINE. NO BELONGINGS PRESENT AT BEDSIDE, VERIFIED AND NOTED. ALL DISCHARGE PAPERWORK SIGNED, COPIES MADE PLACED IN CHART. PATIENT'S IV SITE REMOVED, TIP INTACT. ID BAND REMOVED. PATIENT LEFT THE UNIT ON A WHEELCHAIR, ACCOMPANIED BY XOCHITL ZAMORA AND CAREGIVER CM AT 1420.
[2018-03-18] MEDS ORDERED: NOREPINEPHRINE 4 MG/4 ML AMPUL IV ONE (22:08)
== END 2018-03-17 14:15 | disposition home health service (06) | DRG 682 ==
LOC: ER 15:25 → MED 17:27 → TELE 20:04 → MED 03-16 08:47
PROVIDERS: ADMIT Nurse Practitioner Acute Care; ATTEND Internal Medicine
DX: N17.0 Acute kidney failure with tubular necrosis (principal); G92 Toxic encephalopathy; E43 Unspecified severe protein-calorie malnutrition; M84.48XA Pathological fracture, other site, initial encounter for fracture; D68.59 Other primary thrombophilia; E16.2 Hypoglycemia, unspecified; G93.9 Disorder of brain, unspecified; R26.81 Unsteadiness on feet; W19.XXXA Unspecified fall, initial encounter; Z91.81 History of falling; Y92.009 Unspecified place in unspecified non-institutional (private) residence as the place of occurrence of the external cause; E86.0 Dehydration; F17.210 Nicotine dependence, cigarettes, uncomplicated; I10 Essential (primary) hypertension; I25.10 Atherosclerotic heart disease of native coronary artery without angina pectoris; Z85.118 Personal history of other malignant neoplasm of bronchus and lung; Z96.642 Presence of left artificial hip joint; Z90.5 Acquired absence of kidney; I25.2 Old myocardial infarction; E88.09 Other disorders of plasma-protein metabolism, not elsewhere classified; M62.50 Muscle wasting and atrophy, not elsewhere classified, unspecified site; Z79.899 Other long term (current) drug therapy; Z68.24 Body mass index [BMI] 24.0-24.9, adult; Z85.841 Personal history of malignant neoplasm of brain
CPT/HCPCS: 36415; 70450-TC; 71045-TC; 80048-TC; 80061-TC; 80076-TC; 80305; 81000-TC; 82140-TC; 83735-TC; 84100-TC; 84484-TC; 85025-TC; 85730-TC; 87081-TC; 97116-TC; 97530-TC; A6248; A6402; G0378; G0480; J7030; J8540

== ENCOUNTER 2018-03-18 19:45 | Inpatient (IN) | payer MEDICARE ==
[~2018-03-18] VITALS: Ht 170.2 cm; Wt 71.2 kg
--- NOTE | 2018-03-18 19:50 | NUR ---
PT BIB RA WITH A C/O NEAR SYNCOPE. PT HAS 18G IV IN RT WRIST AND 20G IV IN LAC CAR WORKER HELPER. PT REC'D 750ML NS IN THE FIELD. PT IS ON THE MONITOR AND CONTINUOUS PULSE OX. PT IS SPEAKING AND APPEARS TIRED. PT IS 92% ON RA. PT PLACED ON 2L O2 VIA NC.
[2018-03-18 20:13] LABS: BASOPHILS % (AUTO) 0.1 % (0.0-2.0); HEMATOCRIT 27 % (39-51); HEMOGLOBIN 8.7 g/dL (13.5-17.5); LYMPHOCYTES # (AUTO) 0.1 /CMM (0.8-4.8); LYMPHOCYTES % (AUTO) 1.7 % (20.0-44.0); MEAN CORPUSCULAR HGB CONC 32 g/dl (31.0-36.0); MEAN CORPUSCULAR VOLUME 88 fL (80-96); MONOCYTES # (AUTO) 0.1 /CMM (0.1-1.30); MONOCYTES % (AUTO) 2.1 % (2.0-12.0); NEUTROPHILS # (AUTO) 4.4 /CMM (1.8-8.9); NEUTROPHILS % (AUTO) 96.1 % (43.0-81.0); RED BLOOD CELL COUNT(AUTO) 3.09 MIL/uL (4.5-6.0); WHITE BLOOD COUNT (AUTO) 4.5 K/uL (4.3-11.0)
[2018-03-18 20:23] LABS: ALBUMIN 1.7 g/dL (3.4-5.0); BILIRUBIN,DIRECT 0.4 mg/dL (0.0-0.2); BILIRUBIN,TOTAL 0.8 mg/dL (0.2-1.0); CALCIUM, SERUM 6.8 mg/dL (8.5-10.1); CREATININE 1.6 mg/dL (0.6-1.3); POTASSIUM 3.6 mmol/L (3.5-5.1); TOTAL PROTEIN, SERUM 3.7 g/dL (6.4-8.2)
[2018-03-18] MEDS ORDERED: DEXTROSE 50%-WATER 50 ML DISP.SYRIN ONE (20:26)
--- NOTE | 2018-03-18 20:28 | NUR ---
PT'S ACCUCHECK IS 59. NOTIFIED. PT REC'ING 1 AMP DEXTROSE ORDERED.
[2018-03-18] MEDS ORDERED: IV NS 0.9% 1,000 ML BAG IV ONE ×2 (20:30)
[2018-03-18] MEDS ORDERED: DEXTROSE 50%-WATER 50 ML DISP.SYRIN IVP ONE (20:30)
--- NOTE | 2018-03-18 20:44 | NUR ---
CALLED RT RE: BREATHING TX.
--- NOTE | 2018-03-18 20:46 | NUR ---
CALLING LAB RE: TROPONIN. LAB IS STILL RUNNING THE TROP.
[2018-03-18 20:48] LABS: PLATELET COUNT (AUTO) 17 /CMM (150-450)
--- NOTE | 2018-03-18 20:51 | NUR ---
CALLED PT'S JEN HAYES, AT [phone]. PT LEFT A VOICE MESSAGE FOR JEN.
[2018-03-18] MEDS ORDERED: ALBUTEROL FS 2.5 MG/3 ML VIAL.NEB NEB ONE (21:00)
[2018-03-18] MEDS ORDERED: IPRATROPIUM NEB FS 0.5 MG/2.5 ML AMPUL.NEB NEB ONE (21:00)
--- NOTE | 2018-03-18 21:11 | NUR ---
CONSENT FOR CENTRAL LINE INSERTION SIGNED BY PT AND WITH DR. TURNER.
[2018-03-18 21:18] LABS: BAND % (MANUAL) 44 % (0.0-5.0); LYMPHOCYTES % (MANUAL) 1 % (16-48); MONOCYTES % (MANUAL) 8 % (0-11.0); NEUTROPHILS % (MANUAL) 47 (42-76)
--- NOTE | 2018-03-18 21:20 | NUR ---
DR. TURNER IS AT THE BEDSIDE FOR RT FEM CENTRAL LINE. TIME OUT DONE. PROCEDURE DONE UNDER STERILE CONDITIONS.
[2018-03-18] MEDS ORDERED: ASPIRIN 81 MG TAB.CHEW PO ONE (21:30)
[2018-03-18] MEDS ORDERED: LIDOCAINE 1% INJ 50 ML MDV IJ ONE (21:45)
--- NOTE | 2018-03-18 21:57 | NUR ---
DR TURNER STARTED RT SUB CLAVIAN CENTRAL LINE.
--- NOTE | 2018-03-18 21:58 | NUR ---
CENTRAL LINE INSERTED.
--- NOTE | 2018-03-18 22:00 | NUR ---
CALLED US FOR AORTIC ABD US.
--- NOTE | 2018-03-18 22:01 | NUR ---
RK US MARY, AT THE BEDSIDE.
[2018-03-18] MEDS ORDERED: IV NS 0.9% 250 ML IV ONE (22:04)
[2018-03-18] MEDS ORDERED: IOHEXOL-350 100 ML VIAL IV ONE (22:04)
[2018-03-18] MEDS ORDERED: CT SWABBABLE VALVE TRANS SET 1 EA INFUS.SET MC ONE (22:04)
--- NOTE | 2018-03-18 22:06 | NUR ---
DR. DUNCAN IS AT THE BEDSIDE WITH AN US TO CHECK THE RT ILIAC VESSELS.
[2018-03-18] MEDS ORDERED: VANCOMYCIN 1 GM in IV D5W 250 ML IV STA (22:18)
--- NOTE | 2018-03-18 22:20 | NUR ---
LEVOPHED 8MG IVPB STARTED
--- NOTE | 2018-03-18 22:28 | NUR ---
PT'S JEN HAYES, CALLED. UPDATED JEN AT PT'S REQUEST. PT TAKES GUME PILL, AFINATOR, 10MG PO DAILY. PT TAKES HYDROCODONE AT 0600 AND OXYCONTIN AT 1800.
[2018-03-18] MEDS ORDERED: IV NS 0.9% 500 ML BAG IV ONE (22:30)
[2018-03-18] MEDS ORDERED: NOREPINEPHRINE 8 MG in IV D5W 500 ML IV PRN (22:30)
--- NOTE | 2018-03-18 22:31 | NUR ---
LEVOFED INCREASED BY EMELIA FRANZ TO 6MCG/MIN
[2018-03-18] MEDS ORDERED: VANCOMYCIN 1 GM VIAL ONE (22:35)
[2018-03-18] MEDS ORDERED: CEFEPIME 1 GM VIAL ONE (22:35)
--- NOTE | 2018-03-18 22:38 | NUR ---
CALLED LAB FOR BLOOD CULTURE DRAW.
--- NOTE | 2018-03-18 22:50 | NUR ---
PYTHON JAVA DEVELOPER IS AT THE BEDSIDE FOR BLOOD DRAW.
--- NOTE | 2018-03-18 23:00 | NUR ---
PT PLACED ON 3L O2 VIA NC. PT WAS SATURATING AT 92% ON 2L. PT IS NOW SATURATING AT 95%. PT IS MOUTH BREATHING/SLEEPING.
--- NOTE | 2018-03-18 23:03 | NUR ---
LEVOFED IS NOW AT 12MCG/MIN. ADJUSTED BY Edis SNOW RN/CHG
--- NOTE | 2018-03-18 23:04 | NUR ---
ICU 256
--- NOTE | 2018-03-18 23:13 | NUR ---
CALLING REPORT TO EMELIA LEVINE
--- NOTE | 2018-03-18 23:23 | NUR ---
Georgie VILLARREAL NP IS AT THE BEDSIDE SPEAKING TO THE PT. ICU TO CHECK THE CVP UPON PT ARRIVAL TO THE UNIT.
--- NOTE | 2018-03-18 23:24 | NUR ---
Marleny SNOW RN/CHG SPOKE TO ICU CHG AND Georgie VILLARREAL NP RE: THE PT.
--- NOTE | 2018-03-18 23:24 | NUR ---
Marleny SNOW RN INCREASED THE LEVOFED TO 14MCG/MIN.
--- NOTE | 2018-03-18 23:28 | NUR ---
LEVOFED INCREASED TO 18MCG/MIN. BP MOVED TO THE LT ANKLE.
--- NOTE | 2018-03-18 23:29 | NUR ---
PT BEING TRANSFERED TO ICU PER PROTOCOL.
[2018-03-18] MEDS ORDERED: CEFEPIME 1 GM in IV D5W 50 ML IV STA (23:37)
[2018-03-19] VITALS (119 sets, daily range): BP systolic 32–165; BP diastolic 19–101
[2018-03-19] MEDS ORDERED: HYDROCODONE/APAP 5/325MG 1 EACH TABLET PO PRN
[2018-03-19] MEDS ORDERED: Z GUARD REMEDY 2 OZ OINT TP PRN
[2018-03-19] MEDS ORDERED: MAG HYDROX/AL HYDROX/SIMETH 30 ML UDC PO PRN
[2018-03-19] MEDS ORDERED: LEVOFLOXACIN 750 MG /D5W 150ML 750 MG in PREMIX 1 EA IV SCH ×2
[2018-03-19] MEDS ORDERED: ACETAMINOPHEN 325 MG TABLET PO PRN
[2018-03-19] MEDS ORDERED: ONDANSETRON HCL/PF 4 MG/2 ML VIAL IVP PRN
[2018-03-19] MEDS ORDERED: MAGNESIUM HYDROXIDE 30 ML UDC PO PRN
[2018-03-19] MEDS ORDERED: NOREPINEPHRINE 8 MG in IV D5W 500 ML IV PRN ×2
[2018-03-19] MEDS: IV NS 0.9% 1,000 ML IV PRN (00:08)
[2018-03-19] MEDS ORDERED: LEVOFLOXACIN 750 MG /D5W 150ML 150 ML IV ONE (00:22)
[2018-03-19] MEDS ORDERED: PHENYLEPHRINE 10 MG/ML VIAL ONE ×2 (01:00→05:40)
[2018-03-19] MEDS: NOREPINEPHRINE 8 MG in IV D5W 500 ML IV PRN ×3 (01:03→06:36)
[2018-03-19] MEDS: PHENYLEPHRINE 80 MG in IV NS 0.9% 250 ML IV PRN ×4 (01:09→22:56)
[2018-03-19] MEDS ORDERED: BACLOFEN (10 MG) 10 MG TABLET PO PRN (01:30)
[2018-03-19] MEDS ORDERED: IV NS 0.9% 500 ML IV ONE (02:30)
[2018-03-19] MEDS ORDERED: NOREPINEPHRINE 4 MG/4 ML AMPUL IV ONE ×2 (02:43→06:21)
--- NOTE | 2018-03-19 03:30 | NUR ---
RN NOTES 2330 PM - ADMITTED A 57 Y/O MALE PATIENT AOX4. DIAGNOSES WITH HYPOTENSION. FULL CODE. NO ISOLATION ALLERGIC TO PCN AND TICLOPIDINE. WITH HX. PLACEMENT OF STILL WILLY ON LEFT HIP, NEPHRECTOMY, STENT AND HISTORY OF HEART ATTACT, OK AND MET CANCER. TELE MONITOR PLACED REVEALS ST HR 101 WITH OCCASIONAL PVC'S IV SITE ON RIGHT WRIST G 18, LAC G 20 AND RIGHT INTERNAL JUGULAR TLC INTACT AND PATENT RUNNING WITH LEVOPHED @ 18 MCG/KG/MIN. MULTIPLE SKIN ISSUES NOTED PHOTO TAKEN. 01:30 AM - CALLED NEVA DNP THAT PATIENT IS ALMOST MAX OUT ON HIS LEVO BUT THE BP STILL IN LOW 80'S WITH NEW ORDER OF NEOSYNEPHRINE AND START CVP MONITORING. 0224 AM - KEVIN FROM LAB CALLED FOR LACTIC REFLEX 3.5 CALLED AND SPOKE WITH NEVA WITH NEW ORDER TO GIVE NS 500 ML BOLUS NOTED AND CARRIED OUT ANS REPEAT LACTIC AFTER AN HOUR.
[2018-03-19 04:46] LABS: BASOPHILS % (AUTO) 0.2 % (0.0-2.0); EOSINOPHILS % (AUTO) 0.1 % (0.0-6.0); HEMATOCRIT 29 % (39-51); HEMOGLOBIN 9.5 g/dL (13.5-17.5); LYMPHOCYTES # (AUTO) 0.1 /CMM (0.8-4.8); LYMPHOCYTES % (AUTO) 2.3 % (20.0-44.0); MEAN CORPUSCULAR HGB CONC 33 g/dl (31.0-36.0); MEAN CORPUSCULAR VOLUME 88 fL (80-96); MONOCYTES # (AUTO) 0.1 /CMM (0.1-1.30); MONOCYTES % (AUTO) 2.3 % (2.0-12.0); NEUTROPHILS % (AUTO) 95.1 % (43.0-81.0); RED BLOOD CELL COUNT(AUTO) 3.28 MIL/uL (4.5-6.0); WHITE BLOOD COUNT (AUTO) 6.3 K/uL (4.3-11.0)
[2018-03-19 04:48] LABS: CREATININE 1.6 mg/dL (0.6-1.3); MAGNESIUM 1.3 mg/dL (1.8-2.4); PHOSPHORUS 2.5 mg/dL (2.5-4.9); POTASSIUM 3.7 mmol/L (3.5-5.1)
[2018-03-19 04:53] LABS: PLATELET COUNT (AUTO) 21 /CMM (150-450)
[2018-03-19 04:56] LABS: THYROID STIMULATING HORMONE 0.705 uIU/mL (0.358-3.74)
[2018-03-19] MEDS ORDERED: LIDOCAINE 2% JEL UROJET 10 ML MM ONE (05:00)
[2018-03-19] MEDS ORDERED: CEFEPIME 2 GM in IV D5W 100 ML IV SCH (05:00)
[2018-03-19] MEDS: ALBUTEROL FS 2.5 MG/3 ML VIAL.NEB NEB PRN ×2 (05:14→17:13)
[2018-03-19 05:19] LABS: BAND % (MANUAL) 30 % (0.0-5.0); LYMPHOCYTES % (MANUAL) 4 % (16-48); METAMYELOCYTES % 4 % (0-0); MONOCYTES % (MANUAL) 2 % (0-11.0); MYELOCYTES % 2 % (0-0); NEUTROPHILS % (MANUAL) 60 (42-76)
--- NOTE | 2018-03-19 05:30 | NUR ---
RN NOTES CEFEPIME 2GMS IS UNAVAILABLE TO STOCK PER SUPERVISOR CAPACITOR PROCESSING WILL ENDORSED TO AM SHIFT/ PHARMACY.
--- NOTE | 2018-03-19 07:40 | NUR ---
RN NOTES 0430 AM - BILATERAL BREATH SOUND MORE CRACKLES PATIENT STILL UNABLE TO URINATE DESPITE THAT HIS BEEN TRYING TO USED URINAL. CALLED AND SPOKE TO NEVA MOSQUEDA AND REPORTED ABOUT PATIENT CRACKLES AND NO OUT PUT FROM URINAL WITH ORDER TO INSERT XAVIER CATH AND GIVE BREATHING TX. NOTED AND ACKNOWLEDGE THE ORDER. 0500 AM - KEVIN FROM LAB CALLED AND REPORTED CRITICAL VALUE OF PLATELET 21, LACTIC 4.2 TROPONIN 0.623 AND SERUM CALCIUM 6.0 .
[2018-03-19] MEDS ORDERED: DEXAMETHASONE 4 MG TABLET PO SCH (09:00)
[2018-03-19 09:27] LABS: ABG BASE EXCESS -11.3 mmol/L; ABG OXYGEN SATURATION 91.1 % (92.0-98.5); ABG PCO2 26.9 mmHg (35.0-45.0); ABG PH 7.317 (7.350-7.450); ABG PO2 66.6 mmHg (75.0-100.0); AaDO2 158.9 mmHg; COHb 0.3 % (0.5-1.5); MetHb 0.5 % (0.0-1.5); O2Hb 90.4 % (94.0-97.0); SITE, ABG Right Radial
--- NOTE | 2018-03-19 10:32 | NUR ---
WOUND CARE CONSULT: PT PRESENTS WITH MULTIPLE SKIN ISSUES INCLUDING SACRAL DEEP TISSUE INJURY WHICH IS INTACT, LEFT LATERAL ANKLE WOUND, LEFT HAND SKIN TEAR AND MULTIPLE DRY SCABS, ABRASIONS AND BRUISES, PRESENT ON ADMISSION. RECOMMEND DPM CONSULT FOR LEFT ANKLE WOUND. RECOMMEND FIRST STEP LOW AIRLOSS MATTRESS. ALL SKIN PROTECTION AND WOUND CARE RECOMMENDATIONS DISCUSSED WITH NURSING STAFF. DEFER TO PODIATRY FOR LOWER EXTREMITIES. WILL SEE PRN. SOLER IN AGREEMENT WITH PLAN OF CARE. Addendum: 03/19/18 at 1034 by BRAD FISHER WNDNU Amended: Links added. Addendum: 03/19/18 at 1035 by BRAD FISHER WNDNU CALLUS NOTED TO LEFT PLANTAR FOOT. PT DENIES TENDERNESS.
[2018-03-19] MEDS ORDERED: FEE PK DOSING 1 MIN EA MC ONE (10:46)
[2018-03-19] MEDS: CEFEPIME 2 GM in IV D5W 100 ML IV SCH ×2 (10:52→21:25)
[2018-03-19] MEDS: LEVETIRACETAM (250 MG) 250 MG TABLET PO SCH ×2 (11:17→21:26)
[2018-03-19] MEDS: VANCOMYCIN 0.75 GM in IV D5W 250 ML IV SCH ×2 (11:32→23:15)
[2018-03-19] MEDS: Magnesium 1GM/D5W 100ML PREMIX 100 ML IV SCH ×2 (11:32→13:39)
[2018-03-19] MEDS: NOREPINEPHRINE 16 MG in IV D5W 500 ML IV PRN ×2 (11:38→19:21)
[2018-03-19] MEDS: HYDROCODONE/APAP 5/325MG 1 EACH TABLET PO PRN (11:55)
[2018-03-19] MEDS: HYDROCORTISONE SOD SUCCINATE 100 MG/2 ML VIAL IV SCH ×2 (13:39→17:47)
--- NOTE | 2018-03-19 16:25 | NUR ---
Patient alert and oriented, becoming very anxious. Nasal Cannula switched to simple mask at 10L - saturation at 93-94% with RR30's. Lungs sounds with crackles and expiratory wheezes. Patient requesting to speak to MD. Notify Dr. Lyons. and Dr. Nguyen paged to see patient.
--- NOTE | 2018-03-19 19:30 | NUR ---
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 ON 10L 02 VIA SIMPLE FACE MASK AND NOTED WT BILAT. LUNG CRACKLES AND HIGH RR IN THE 30s. 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 AFEBRILE. PLACED ON HIGH GARZON'S. RIJ TLC INFUSING NS AT 75ML/HR, LEVOPHED AT 40MCG/MIN AND NEOSYNEPHRINE AT 150MCG/MIN. F/C PATENT AND INTACT DRAINING TEA COLORED URINE TO GRAVITY. DR. DEJESUS AT BEDSIDE WT POA/ABIGAIL LI. DISCUSSED PT CURRENT CONDITION AND PLAN OF CARE. PT WT POA WANTS TO BE DNR/DNI PER HIS ADVANCED DIRECTIVE ON FILE. ORDERED ABG STAT FOR POSSIBLE BIPAP. NOTED AND CARRIED OUT. WILL CONTINUE TO MONITOR.
--- NOTE | 2018-03-19 20:00 | NUR ---
RISK CONTROL ANALYST: RELAYED ABG RESULTS TO DR. VILLARREAL WT ORDER FOR BIPAP WT SETTINGS: 14/10 RR=10 FI02 100%. PLACED ON BIPAP. WILL CONTINUE TO MONITOR.
--- NOTE | 2018-03-19 20:14 | NUR ---
RT PT PLACED ON BIPAP POST ABG PER MD ORDERS. BIPAP SETTING NOTED. BIPAP TO RED OUTLET. ALARMS SET AND AUDIBLE. PT BREATH SOUNDS COARSE BILATERAL. PT TOLERATING SETTING WELL. WILL CONTINUE TO MONITOR. RN AWARE OF SETTING. Addendum: 03/19/18 at 2017 by CINTIA KLEIN RT Amended: Links added.
[2018-03-19 20:35] LABS: ABG BASE EXCESS -10.9 mmol/L; ABG OXYGEN SATURATION 91.6 % (92.0-98.5); ABG PCO2 31.7 mmHg (35.0-45.0); ABG PH 7.283 (7.350-7.450); AaDO2 325.9 mmHg; COHb 0.1 % (0.5-1.5); MetHb 0.4 % (0.0-1.5); O2Hb 91.1 % (94.0-97.0); SITE, ABG Right Radial
[2018-03-20] VITALS (24 sets, daily range): BP systolic 58–154; BP diastolic 11–127
--- NOTE | 2018-03-20 01:17 | NUR ---
CORRECTION: PT IS ON LEVOPHED AT 30MCG/MIN NOT 40MCG/MIN.
[2018-03-20] MEDS: IV NS 0.9% 1,000 ML IV PRN (01:52)
[2018-03-20] MEDS: HYDROCODONE/APAP 5/325MG 1 EACH TABLET PO PRN (02:13)
[2018-03-20] MEDS: NOREPINEPHRINE 16 MG in IV D5W 500 ML IV PRN (02:37)
--- NOTE | 2018-03-20 03:10 | NUR ---
TRIM MACHINE OPERATOR: CALLED AND NOTIFIED SUZY MCCONNELL THAT PT CONVERTED TO A. FIB WT HR IN THE 130s. REMINDED HIM AGAIN THAT TROPONIN=3.632 AND ABG RESULT PRIOR TO BIPAP AND PT. NOTED WT ANXIETY M/B RESTLESSNESS AND MORE ALTERED AT THIS TIME. VISUAL TRAINING AIDE WT NEW ORDERS FOR STAT ABG, EKG AND TROPONIN AT 0600. NOTED AND CARRIED OUT.
--- NOTE | 2018-03-20 03:15 | NUR ---
MATERIAL EXPEDITOR: JEN LEMUS NOTIFIED OF PT'S CHANGE OF CONDITION.
[2018-03-20 03:38] LABS: ABG OXYGEN SATURATION 82.6 % (92.0-98.5); ABG PH 6.976 (7.350-7.450); ABG PO2 64.1 mmHg (75.0-100.0); AaDO2 594.9 mmHg; COHb 0.1 % (0.5-1.5); MetHb 0.5 % (0.0-1.5); O2Hb 82.1 % (94.0-97.0); PEEP,BG 8 cm H2O; SITE, ABG Right Radial; VENT MODE, BG ST 15/8 R10 100%
[2018-03-20] MEDS ORDERED: Sodium Bicarbonate 100 MEQ in IV D5W 1,000 ML IV PRN (04:00)
[2018-03-20] MEDS ORDERED: MORPHINE SULFATE INJ 4 MG/ML DISP.SYRIN ONE (04:29)
[2018-03-20] MEDS ORDERED: MORPHINE SULFATE INJ 2 MG/ML DISP.SYRIN IV ONE (04:30)
[2018-03-20] MEDS ORDERED: NOREPINEPHRINE 16 MG in IV D5W 500 ML IV PRN (05:00)
[2018-03-20] MEDS ORDERED: MORPHINE SULFATE INJ 2 MG/ML DISP.SYRIN IV PRN (05:00)
--- NOTE | 2018-03-20 05:00 | NUR ---
OPERATIONAL ASSISTANT: EMERY LI AT BEDSIDE AND SAID TO PLACE PT ON COMFORT MEASURES ONLY AND TO DC BIPAP AND ALL MEDS AND TX. NOTIFIED SUZY MCCONNELL AND AGREED WT ORDERS.
--- NOTE | 2018-03-20 05:05 | NUR ---
WATERPROOF BAG CUTTING MACHINE OPERATOR: PT PLACED ON 4L 02 VIA WA, HIGH GARZON'S AND DC'D ALL MEDS ORDERED. NO EVIDENCE OF DISCOMFORT AT THIS TIME AND WILL ADMINISTER MORPHINE NEEDED. COMFORT MEASURES NOTED.
--- NOTE | 2018-03-20 05:26 | NUR ---
GRINDER MACHINE KNIFE SETTER: NOTED ASYSTOLE ON VULNERABILITY RESEARCHER. ASSESSMENT DONE WT NO BP APPRECIATED. NO PALPABLE PULSES AND NO RISING AND FALLING OF CHEST. EYES FIXED AND DILATED. EXPIRATION PRONOUNCED BY CHARGED NURSE ED. FAMILY AT BEDSIDE.
--- NOTE | 2018-03-20 05:27 | NUR ---
DIRECTOR PRODUCT SAFETY: FIRE LOSS PREVENTION ENGINEER LIAT MADE AWARE OF TIME OF EXPIRATION. GERONIMO FROM ADMITTING ([id number]) AND ENEDINA ([id number]) TRANSITION ASSISTANT WERE INFORMED WELL.
--- NOTE | 2018-03-20 06:18 | NUR ---
FRAME BUILDER: CALLED [facility] AND SPOKE WT RAMANA Manzanares TO REPORT . WAS GIVEN REFERENCE #[id number] AND SAID TO RELEASE BODY TO MORTUARY. POST MORTEM CARE DONE. BELONGINGS SENT WT JEN.
--- NOTE | 2018-03-20 06:27 | NUR ---
OPERATIONAL COMMUNICATION CHIEF: CALLED [facility] ([phone]) AND SPOKE WT ASHLEY FOR BODY TO WAREHOUSE DISTRIBUTION MANAGER. ESTIMATED BODY WAREHOUSE DISTRIBUTION MANAGER TIME WITHIN 1-2HRS.
[2018-03-21] MEDS ORDERED: LEVOFLOXACIN 750 MG /D5W 150ML 750 MG in PREMIX 1 EA IV SCH ×2
== END 2018-03-20 07:48 | disposition expired | DRG 871 ==
LOC: ER 19:47 → ICU 23:23
PROVIDERS: ADMIT Nurse Practitioner Acute Care; ATTEND Hospitalist
PROC: 02HV33Z Insertion of Infusion Device into Superior Vena Cava, Percutaneous Approach (ICD-10-PCS; principal; 2018-03-18)
PROC: B548ZZA Ultrasonography of Superior Vena Cava, Guidance (ICD-10-PCS; 2018-03-18)
DX: A41.9 Sepsis, unspecified organism (principal); R65.21 Severe sepsis with septic shock; N17.0 Acute kidney failure with tubular necrosis; I21.A1 Myocardial infarction type 2; E43 Unspecified severe protein-calorie malnutrition; J96.01 Acute respiratory failure with hypoxia; J18.9 Pneumonia, unspecified organism; D65 Disseminated intravascular coagulation [defibrination syndrome]; E87.2 Acidosis; J90 Pleural effusion, not elsewhere classified; Z51.5 Encounter for palliative care; D63.8 Anemia in other chronic diseases classified elsewhere; F17.210 Nicotine dependence, cigarettes, uncomplicated; Z96.649 Presence of unspecified artificial hip joint; Z90.5 Acquired absence of kidney; Z85.528 Personal history of other malignant neoplasm of kidney; Z92.3 Personal history of irradiation; Z85.118 Personal history of other malignant neoplasm of bronchus and lung; I25.5 Ischemic cardiomyopathy; I25.10 Atherosclerotic heart disease of native coronary artery without angina pectoris; I10 Essential (primary) hypertension; Z88.0 Allergy status to penicillin; E88.09 Other disorders of plasma-protein metabolism, not elsewhere classified; Z68.24 Body mass index [BMI] 24.0-24.9, adult; Z95.5 Presence of coronary angioplasty implant and graft; R53.1 Weakness; S90.512A Abrasion, left ankle, initial encounter; X58.XXXA Exposure to other specified factors, initial encounter; Y93.9 Activity, unspecified; Y92.009 Unspecified place in unspecified non-institutional (private) residence as the place of occurrence of the external cause; Z66 Do not resuscitate; I25.2 Old myocardial infarction; G93.89 Other specified disorders of brain
CPT/HCPCS: 31720; 36415; 36600; 71045-TC; 76700-TC; 80048-TC; 80061-TC; 80076-TC; 82533; 82803-TC; 82962-TC; 83605-TC; 83735-TC; 84100-TC; 84443-TC; 84484-TC; 85025-TC; 85385-TC; 85730-TC; 86850-TC; 87040-TC; 87081-TC; 87186-TC; 93307-TC; A4216; A4624; A6402; A6403; C1751; G0378; J0692; J1720; J1956; J2270; J2370; J3370; J3475; J3490; J7030; J7040; J7050; J7060; J7070; J8540; Q9967